=== PATIENT | male | born 1955 | race Caucasian/White ===

== ENCOUNTER 2016-02-23 09:37 | Emergency (ER) | payer BC ==
[2016-02-23 10:06] VITALS: BP 153/76; PULSE 92; TEMP 97.4; BMI 25.2
[2016-02-23] MEDS ORDERED: KETOROLAC TROMETHAMINE 60 MG/2 ML VIAL IM ONE (10:34)
[2016-02-23] MEDS ORDERED: KETOROLAC TROMETHAMINE 60 MG/2 ML VIAL ONE (10:39)
--- NOTE | 2016-02-23 10:41 | PDOC ---
History of Present Illness - General Chief Complaint: Pain Stated Complaint: RT SHOULDER PAIN/ RT ARM Time Seen by Provider: 02/23/16 10:22 History Source: Patient Exam Limitations: No Limitations - History of Present Illness Initial Comments: 02/23/16 10:36 61 yr male history of asthma, CAD, stents, DM, high cholesterol with one week right shoulder pain worse with moving neck, c/o "burning sensation " sown the outside of the arm worse at night and driving. Pt denies injury denies fever or chills no chest pain or cough. Pt saw 2 days ago was given an injection in the shoulder that helped the pain for one day now pain has returned. 02/23/16 13:17 Severity: reports: moderate Upper Extremity Pain Location: right: shoulder Method of Injury: reports: unknown Past History - Past Medical History Allergies/Adverse Reactions: Allergies Allergy/AdvReac Type Severity Reaction Status Date / Time No Known Allergies Allergy Verified 02/23/16 10:06 Home Medications: Ambulatory Orders Aspirin [ASA -] 81 mg PO DAILY 02/23/16 Lisinopril 10 mg PO DAILY 02/23/16 Metformin HCl [Glucophage] 1,000 mg PO BID 02/23/16 Metoprolol Succinate [Toprol Xl -] 25 mg PO DAILY 02/23/16 Naproxen [Naprosyn -] 500 mg PO BID PRN 02/23/16 Oxycodone HCl/Acetaminophen [Percocet 5-325 mg Tablet] 1 - 2 tab PO Q6H PRN #20 tab MDD 8 02/23/16 Pregabalin [Lyrica -] 75 mg PO BID 02/23/16 Simvastatin [Zocor] 80 mg PO HS 02/23/16 Sitagliptin Phosphate [Januvia] 100 mg PO DAILY 02/23/16 Ticagrelor [Brilinta] 90 mg PO DAILY 02/23/16 Vilazodone Hydrochloride [Viibryd] 20 mg PO DAILY 02/23/16 Cardiac Disorders: Yes Diabetes: Yes Hypercholesterolemia: Yes Psychiatric Problems: Yes (depression) - Surgical History Cardiac Surgery: Yes (CARDIAC STENT) Cholecystectomy: Yes - Family Disease History Comment:: 02/23/16 10:39 none - Immunization History Immunization Up to Date: Yes - Psycho/Social/Smoking Cessation Hx Anxiety: No Suicidal Ideation: No Smoking History: Current every day smoker Have you smoked in the past 12 months: Yes Number of Cigarettes Smoked Daily: 20 Information on smoking cessation initiated: No Hx Alcohol Use: No Substance Use Type: None Review of Systems - Review of Systems Able to Perform ROS?: Yes Is the patient limited Palestinian proficient: No Constitutional: No: Symptoms Reported HEENTM: No: Symptoms Reported Respiratory: No: Symptoms reported Cardiac (ROS): No: Symptoms Reported ABD/GI: No: Symptoms Reported : No: Symptoms Reported Musculoskeletal: Yes: Symptoms Reported, See HPI Neurological: Yes: Symptoms reported, See HPI *Physical Exam - Vital Signs Last Vital Signs Temp Pulse Resp BP Pulse Ox 97.4 F L 92 H 20 153/76 98 02/23/16 10:03 02/23/16 10:03 02/23/16 10:03 02/23/16 10:03 02/23/16 10:03 - Physical Exam General Appearance: Yes: Nourished, Appropriately Dressed HEENT: positive: EOMI, JEANETTE, Normal ENT Inspection, TMs Normal, Pharynx Normal Neck: positive: Supple, Tender midline, Other (pain with ROM of neck to the lateral right sternoclomastoid muscle/trap muscle TTP ) Respiratory/Chest: positive: Lungs Clear, Normal Breath Sounds Cardiovascular: positive: Regular Rhythm, Regular Rate Gastrointestinal/Abdominal: positive: Normal Bowel Sounds, Soft. negative: Tender Extremity: positive: Normal Capillary Refill, Normal Inspection, Normal Range of Motion, Other (pain with ROM , abduction of shoulder ) Integumentary: positive: Normal Color Neurologic: positive: Fully Oriented, Alert, Normal Mood/Affect, Normal Response , Motor Strength 5/5, Other (5/5 hand grasp right and left hands ) ED Treatment Course - RADIOLOGY Radiology Studies Ordered: Category Date Time Status SHOULDER-RIGHT [RAD] Stat Radiology 02/23/16 10:34 Ordered SPINE-CERVICAL [RAD] Stat Radiology 02/23/16 10:34 Ordered Medical Decision Making - Medical Decision Making 02/23/16 10:41 cc: right shoulder pain with numbness to the arm for 1-2 weeks, pain in the neck with movement. no chest pain or abd pain will xray to r/o fracture toradol for pain pt drove here will prescribe percocet sling to the right arm will follow at the orthopedist office, pt understands the plan of care all questions asked and answered before discharge. 02/23/16 13:17 *DC/Admit/Observation/Transfer Diagnosis at time of Disposition: Shoulder pain, acute Qualifiers: Laterality: right Qualified Code(s): M25.511 - Pain in right shoulder - Discharge Dispostion Disposition: HOME Condition at time of disposition: Good - Prescriptions Prescriptions: Oxycodone HCl/Acetaminophen [Percocet 5-325 mg Tablet] 1 - 2 tab PO Q6H PRN #20 tab MDD 8 PRN Reason: Severe Pain - Referrals Referrals: Julio Cesar Ramsey MD [Primary Care Provider] - Rudi King MD [Staff Physician] - - Patient Instructions Additional Instructions: follow with or any of the orthopedists in the office for follow up use the sling while awake remove to sleep and bathe take percocet for severe pain
== END 2016-02-23 11:32 | disposition home or self-care (01) ==
LOC: JERFT 09:37
PROC: 3E0233Z Introduction of Anti-inflammatory into Muscle, Percutaneous Approach (ICD-10-PCS; principal; 2016-02-23)
DX: M25.511 Pain in right shoulder (principal); Z79.84 Long term (current) use of oral hypoglycemic drugs; F32.9 Major depressive disorder, single episode, unspecified; I51.9 Heart disease, unspecified; Z95.5 Presence of coronary angioplasty implant and graft; E78.00 Pure hypercholesterolemia, unspecified; E11.9 Type 2 diabetes mellitus without complications; F17.210 Nicotine dependence, cigarettes, uncomplicated
CPT/HCPCS: 72050-TC; 73030-TC-RT; 99281-25

== ENCOUNTER 2016-03-01 09:26 | Day surgery (SDC) | payer BC ==
--- NOTE | 2016-02-23 08:31 | HP ---
DATE OF ADMISSION:03/01/2016 DATE OF DICTATION: 01/20/2016 REASON FOR ADMISSION: Recurrent incarcerated ventral hernia. BRIEF HISTORY: This is a 61-year-old gentleman who underwent an open ventral hernia repair approximately 10 years ago. He now presents to the office with an enlarging lump and pain in the area. He has had no bouts of nausea or vomiting. Past medical history is significant for hypotension, diabetes, cardiac disease, and bilateral lower extremity neuralgia. MEDICATIONS: Lyrica 1 tablet b.i.d., lisinopril 10 mg daily, Brilinta 90 mg b.i.d., Januvia 10 mg daily, metoprolol 0.5 mg b.i.d., atorvastatin 80 mg daily, metformin 100 mg b.i.d., and Viibryd 20 mg daily. ALLERGIES: None. SOCIAL HISTORY: Patient smokes. He does not drink. PHYSICAL EXAMINATION: Lungs: Clear. Heart: Regular rhythm. Abdomen: Soft, nontender, nondistended. He has an obvious recurrent ventral incisional hernia. It is chronically incarcerated. It is mildly tender to moderate palpation. The defects are not appreciated due to its chronically incarcerated nature. IMPRESSION/PLAN: Chronically incarcerated ventral hernia: This is a 61-year-old gentleman with recurrent hernia. He is status post mesh repair approximately 10 years ago. At this point he is symptomatic and states that the hernia has gotten larger and therefore I would recommend repairing the hernia at this time. The patient will be scheduled for an open ventral herniorrhaphy with mesh, possible component separation. The indications, alternatives, and complications discussed, questions answered. Chaparro ENRIQUEZ [id number] cc: Julio Cesar Ramsey MD
[2016-02-29 11:27] VITALS: BMI 25.8
[2016-03-01] MEDS ORDERED: TAMSULOSIN HCL 0.4 MG CAP.ER.24H (FP) ONE (10:08)
[2016-03-01] MEDS ORDERED: ceFAZolin SODIUM 1 GM VIAL ONE (10:08)
[2016-03-01] MEDS ORDERED: MIDAZOLAM HCL 2 MG/2 ML SINGLE DOSE VIAL ONE (11:14)
[2016-03-01] MEDS ORDERED: LIDOCAINE HCL/PF 2% SDV 5ML VIAL ONE ×2 (11:30→12:38)
[2016-03-01] MEDS ORDERED: ETOMIDATE 20 MG/10 ML AMPUL IVPUSH ONE (11:30)
[2016-03-01] MEDS ORDERED: PROPOFOL 20 ML ONE (11:30)
[2016-03-01] MEDS ORDERED: ROCURONIUM BROMIDE 50 MG/5 ML VIAL ONE ×2 (11:30→12:16)
[2016-03-01] MEDS ORDERED: ceFAZolin SODIUM 1 GM VIAL IVPB ONE (11:39)
[2016-03-01] MEDS ORDERED: GLYCOPYRROLATE 0.2 MG/1 ML VIAL ONE (12:37)
[2016-03-01] MEDS ORDERED: LIDOCAINE HCL 2% JELLY (5 ML/TUBE) ONE (12:38)
[2016-03-01] MEDS ORDERED: ONDANSETRON 4 MG/2 ML VIAL ONE (12:38)
[2016-03-01] MEDS ORDERED: NEOSTIGMINE METHYLSULFATE 0.5 MG/ML - 10 ML MDV ONE (12:41)
[2016-03-01] MEDS ORDERED: ONDANSETRON 4 MG/2 ML VIAL IVPUSH PRN (13:34)
[2016-03-01] MEDS ORDERED: LACTATED RINGERS SOLUTION 1,000 ML IV SCH (13:45)
[2016-03-01] MEDS ORDERED: ACETAMINOPHEN 325 MG TABLET (FP) PO PRN (13:58)
[2016-03-01] MEDS ORDERED: ONDANSETRON 4 MG/2 ML VIAL IVPB PRN (13:58)
[2016-03-01] MEDS ORDERED: morphine CARPU-JECT 10 MG/1 ML DISP.SYRIN IVPB PRN (13:58)
[2016-03-01] MEDS ORDERED: D5-1/2NS+20 MEQ KCL - 1,000 ML IV SCH (14:00)
[2016-03-01] MEDS: HYDROmorphone HCL CARPU-JECT 2 MG/1 ML DISP.SYRIN ONE ×3 (14:20→14:45)
[2016-03-01] MEDS: INSULIN SLIDING SCALE (NOVOLOG) 1 VIAL SQ SCH ×2 (17:25→21:31)
[2016-03-01] MEDS: metFORMIN HCL 500 MG TABLET (FP) PO SCH (17:27)
[2016-03-01] MEDS: PREGABALIN 75 MG CAPSULE PO SCH (21:34)
[2016-03-01] MEDS ORDERED: ATORVASTATIN CA 40 MG TABLET (FP) PO SCH (22:00)
[2016-03-01] MEDS ORDERED: PATIENT'S OWN MEDICATION (NON-FORMULARY) (Simvastatin [Zocor] 80 MG) PO SCH (22:00)
[2016-03-01] MEDS ORDERED: PATIENT'S OWN MEDICATION (NON-FORMULARY) (Metformin Hcl [Glucophage] 1,000 MG) PO SCH (22:00)
[2016-03-02] MEDS: oxyCODONE HCL 5 MG TABLET PO PRN ×2 (02:46→08:27)
[2016-03-02] MEDS: metFORMIN HCL 500 MG TABLET (FP) PO SCH (05:59)
[2016-03-02] MEDS: INSULIN SLIDING SCALE (NOVOLOG) 1 VIAL SQ SCH (05:59)
[2016-03-02] MEDS ORDERED: sitaGLIPtin PHOSPHATE 100 MG TABLET (FP) PO SCH (07:00)
[2016-03-02 08:25] VITALS: BP 128/60; PULSE 84; TEMP 97.9
[2016-03-02] MEDS ORDERED: PT OWN MED DRAWER 7, Y5N ONE (09:39)
[2016-03-02] MEDS: PREGABALIN 75 MG CAPSULE PO SCH (09:44)
[2016-03-02] MEDS ORDERED: TICAGRELOR 90 MG TABLET PO SCH (10:00)
[2016-03-02] MEDS ORDERED: PANTOPRAZOLE SODIUM 100 ML IVPB SCH (10:00)
[2016-03-02] MEDS ORDERED: VILAZODONE HYDROCHLORIDE 20 MG TABLET PO SCH (10:00)
[2016-03-02] MEDS ORDERED: LISINOPRIL 10 MG TABLET (FP) PO SCH (10:00)
[2016-03-02] MEDS ORDERED: METOPROLOL SUCCINATE 25 MG TAB.SR.24H (FP) PO SCH (10:00)
[2016-03-02] MEDS ORDERED: ENOXAPARIN NA (PORCINE) 40 MG/0.4 ML DISP.SYRIN SQ SCH (10:00)
[2016-03-02] MEDS ORDERED: ASPIRIN 81 MG CHEWABLE TABLETS PO SCH (10:00)
--- NOTE | 2016-03-02 10:44 | OP ---
DATE OF OPERATION: 03/02/2016 PREOPERATIVE DIAGNOSIS: Recurrent, complex, chronically incarcerated ventral incisional hernia. POSTOPERATIVE DIAGNOSIS: Recurrent, complex, chronically incarcerated ventral incisional hernia. PROCEDURE: Open repair of chronically incarcerated recurrent ventral incisional hernia with mesh, total abdominal reconstruction, bilateral component separation, peritoneal lavage, bladder mobilization. SURGEON: Arslan Echols MD SHOE LAY OUT PLANNER: Kofi Mayers MD ANESTHESIA: Vanita Durbin MD (General) ESTIMATED BLOOD LOSS: Minimal. SPECIMEN: None. DESCRIPTION OF PROCEDURE: This is a 61-year-old gentleman who underwent an open ventral hernia repair many, many years ago with mesh. He now has a recurrence, and the hernia is now causing him discomfort. He is here for operative repair. The patient was identified and appropriately positioned on the operating room table. After placement of general anesthesia, the abdomen was prepped and draped in the usual sterile fashion with ChloraPrep. A midline incision overlying the previous scar was made and deepened to the subcutaneous tissue. The hernia recurrence was also identified along with the hernia itself. The hernia was free from the subcutaneous tissue down to the level of the fascia. Next, the fascia at the superior edge of the hernia defect was then scored and taken towards the previous repair, and staying outside the previous repair, the fascia was then completely circumscribed in this fashion. Next, the fascia was then lifted to the anterior abdominal wall. The rectus muscle on the patient's right side was identified and the fascia just inferior to the rectus was then scored and the retrorectus space entered. This was then taken out laterally, superiorly, and inferiorly with blunt dissection. This similar technique was used on the contralateral side (the patient's left side). Next, the previous mesh along with the recurrent hernia was then overstumped beneath the posterior rectus sheath, and the rectus sheath was then reconstructed and reapproximated with running, locking 3-0 Maxon suture. The old mesh was not removed. Next, the rectorectus space on the patient's right side that was previously entered was then taken out laterally to the perforating vessels. Just medial to the perforating vessels, the fascia was then subsequently scored and the transversus released from the junction of the obliques and rectus junction. This was done the length of the defect as well as 4-5 cm above and below the actual defect. Once this was completed on the patient's right side, similar technique was used on the left side. On the left side, the transversus was from the obliques and the rectus with the cautery. This was done just medial to the perforating vessels. The myofascial separation again was done the length of the incision and approximately 4-5 cm above and below the incision and defect as well. In the midline, it was taken up a good 3 cm superiorly and a good 3-4 cm inferiorly. Next, the defect measured and a large Covidien ProGrip 15 x 15 was used for the operative repair. The posterior surface of the ProGrip was then sewn with a piece of Phasix of similar size. The 2 pieces of mesh were sewn together with interrupted 3-0 Vicryl sutures. The mesh itself was then placed into the rectorectus space that was developed and anchored way lateral beyond the obliques beyond the myofascial separation line on either side with interrupted Covidien AbsorbaTack. Deep purchase was used. In the midline the mesh was then sewn to the midline fascia with a U 0 Prolene superiorly and inferiorly as well. The mesh itself was irrigated, the operative field examined and noted to be hemostatic. The fascia overlying the mesh was then reapproximated with a 0 PDS suture. The suture bites placed were 5 cm apart and 5 cm back using a small needle. This was the 4:1 technique. The subcutaneous space was then irrigated. A 10 flat JOSE ANTONIO placed and the dermis reapproximated with interrupted inverted 3-0 Vicryl suture and the skin closed with yara. At the conclusion of this case, sponge and needle counts were correct. ATTESTATION: Brief operative note handwritten on the preprinted form. [facility] will be queried prior to giving any narcotics, and the prescriptions will be done electronically. Chaparro ENRIQUEZ [id number]
== END 2016-03-02 10:55 | disposition home or self-care (01) ==
LOC: JASUSAT 09:26 → J6S 17:00 → JASUSAT 03-02 10:55
PROVIDERS: ATTEND Surgery
PROC: 0WUF0JZ Supplement Abdominal Wall with Synthetic Substitute, Open Approach (ICD-10-PCS; principal; 2016-03-01 11:00)
PROC: 0WUF0JZ Supplement Abdominal Wall with Synthetic Substitute, Open Approach (ICD-10-PCS; 2016-03-01 11:00)
DX: K43.0 Incisional hernia with obstruction, without gangrene (principal); M62.08 Separation of muscle (nontraumatic), other site
CPT/HCPCS: 94010; 94760

== ENCOUNTER 2016-04-25 10:56 | Emergency (ER) | payer BC ==
[2016-04-25 11:06] VITALS: TEMP 97.5
--- NOTE | 2016-04-25 12:24 | PDOC ---
History of Present Illness - General History Source: Patient Exam Limitations: No Limitations <Lily Nuñez - Last Filed: 04/25/16 12:56> - History of Present Illness Initial Comments: General History Source: Patient Exam Limitations: No Limitations - History of Present Illness Initial Comments: 04/25/16 12:33 The patient is a 61 year-old man, currently everyday cigarette smoker, with a significant past medical history of hypercholesterolemia, coronary artery disease status post stent, on brilenta as blood thinner, non-insulin dependent diabetes mellitus who presents to the emergency department for further evaluation of vomiting. with vomiting some blood once today. No fever, chills. He states that approximately 6 months ago, he started to experience right shoulder pain. He went to his PMD, Dr.Martin Ramsey for further evaluation and an MRI was recommenced, which showed a "torn shoulder". Patient was placed on Advil, Aleve and Oxycodone approximately 2-3x/day for three months, which did not provide him with much relief therefore, he started taking more than this. Patient states that approximately 3 weeks ago, her started feeling nauseous and was vomiting persistently with associated loose watery stools (no blood/dark tarry appearance in stools). No abdominal pain. He was unable to tolerate any PO , thus he visited to Dr. Ramsey, who recommended a consult with Employment Security Officer, Dr. Dixon Dowd and he is scheduled for an endoscopy on May 10. This morning, the patient noted some blood in his episode of emesis , that was pink in appearance, thus he present to the Emergency Department. He denies chest pain, cough, shortness of breath, headache He denies abdominal pain, dysuria, hematuria, urinary frequency/urgency, flank pain, testicular pain or penile discharge. Allergies: No Known Drug Allergies. No Known Food Allergies. Past Surgical History: Cardiac stent placement. Hernia Repair with mesh. Social History: Current everyday cigarette smoker (Approximately 20/day). No ETOH, or recreational drug use. Primary Care Physician: Dr. Julio Cesar Ramsey [phone] Employment Security Officer: Dr. Dixon Dowd [phone] Remainder of the review of systems is negative. <Lily Nuñez - Last Filed: 04/25/16 12:45> <Fatoumata Man Last Filed: 04/27/16 07:45> - General Chief Complaint: Nausea/Vomiting Stated Complaint: NAUSEA, VOMITING BLOOD Time Seen by Provider: 04/25/16 12:12 Past History <Lily Nuñez - Last Filed: 04/25/16 12:56> - Past Medical History Anemia: No Asthma: No Cancer: No Cardiac Disorders: Yes CVA: No COPD: No CHF: No Dementia: No Diabetes: Yes GI Disorders: No Disorders: No HTN: No Hypercholesterolemia: Yes Liver Disease: No Psychiatric Problems: Yes (depression) Seizures: No Thyroid Disease: No - Surgical History Abdominal Surgery: Yes (hernia repair) Cardiac Surgery: Yes (CARDIAC STENT) Cholecystectomy: Yes - Immunization History Immunization Up to Date: Yes - Psycho/Social/Smoking Cessation Hx Anxiety: No Suicidal Ideation: No Smoking History: Current every day smoker Have you smoked in the past 12 months: Yes Number of Cigarettes Smoked Daily: 20 Information on smoking cessation initiated: No 'Breaking Loose' booklet given: 02/29/16 Hx Alcohol Use: No Drug/Substance Use Hx: No Substance Use Type: None <Fatoumata Man - Last Filed: 04/27/16 07:45> - Past Medical History Allergies/Adverse Reactions: Allergies Allergy/AdvReac Type Severity Reaction Status Date / Time No Known Allergies Allergy Verified 04/25/16 11:01 Home Medications: Ambulatory Orders Lisinopril 10 mg PO DAILY 02/23/16 Metoprolol Succinate [Toprol Xl -] 25 mg PO DAILY 02/23/16 Pregabalin [Lyrica -] 75 mg PO BID 02/23/16 Simvastatin [Zocor] 80 mg PO HS 02/23/16 Ticagrelor [Brilinta] 90 mg PO DAILY 02/23/16 Vilazodone Hydrochloride [Viibryd] 20 mg PO DAILY 02/23/16 Oxycodone HCl/Acetaminophen [Percocet 5-325 mg Tablet] 1 tab PO Q4H PRN #42 tablet MDD 6 03/01/16 Metformin HCl [Glucophage] 1,000 mg PO BID 04/25/16 Review of Systems - Review of Systems Able to Perform ROS?: Yes Comments:: 04/25/16 12:33 12 point review of systems is as per history of present illness and otherwise negative. <Lily Nuñez - Last Filed: 04/25/16 12:56> *Physical Exam - Vital Signs Last Vital Signs Temp Pulse Resp BP Pulse Ox 97.5 F L 102 H 20 113/70 100 04/25/16 11:02 04/25/16 11:02 04/25/16 11:02 04/25/16 11:02 04/25/16 11:02 <Lily Nuñez - Last Filed: 04/25/16 12:56> - Vital Signs Last Vital Signs Temp Pulse Resp BP Pulse Ox 97.5 F L 102 H 20 113/70 100 04/25/16 11:02 04/25/16 11:02 04/25/16 11:02 04/25/16 11:02 04/25/16 11:02 - Physical Exam Comments: 04/25/16 12:28 Physical exam Last Vital Signs Temp Pulse Resp BP Pulse Ox 97.5 F L 102 H 20 113/70 100 04/25/16 11:02 04/25/16 11:02 04/25/16 11:02 04/25/16 11:02 04/25/16 11:02 GENERAL: The patient is awake, alert, and fully oriented, and in no apparent distress. HEAD: Normal with no signs of trauma. EYES: sclera anicteric, conjunctiva are normal. ENT: Moist mucous membranes. NECK: Normal range of motion, supple LUNGS: Breath sounds equal, clear to auscultation bilaterally. No wheezes, and no crackles. HEART: Regular rate and rhythm, normal S1 and S2 without murmur, rub or gallop. ABDOMEN: Soft, nontender, normoactive bowel sounds. No guarding, no rebound. No masses appreciated. Prior Abdominal hernia repair with graft EXTREMITIES: Normal range of motion, no edema. No clubbing or cyanosis. No cords, erythema, or tenderness. NEUROLOGICAL: Cranial nerves II through XII grossly intact. Normal speech, normal gait. PSYCH: Normal mood, normal affect. SKIN: Warm, Dry, normal turgor, no rashes or lesions noted. <Fatoumata Man - Last Filed: 04/27/16 07:45> ED Treatment Course - LABORATORY CBC & Chemistry Diagram: 04/25/16 12:07 04/25/16 12:07 - RADIOLOGY Radiograph Interpretation: 04/25/16 12:55 EXAM: RAD/CHEST X-RAY PORTABLE IMPRESSION: A single frontal film of the chest reveals a normal sized heart with normal vascularity. The lung triplett are clear without evidence of mass or infiltrate. The mediastinal, osseous, and soft tissue structures as visualized are normal. <JoaquinLily - Last Filed: 04/25/16 12:56> - LABORATORY CBC & Chemistry Diagram: 04/25/16 12:07 04/25/16 12:07 - RADIOLOGY Radiology Studies Ordered: Category Date Time Status CHEST X-RAY PORTABLE* [RAD] Stat Radiology 04/25/16 12:06 Ordered <Fatoumata Man - Last Filed: 04/27/16 07:45> Medical Decision Making - Medical Decision Making 04/25/16 12:30 61-year-old male with a history of CAD with stents, who was on brilenta as a blood thinner He has had chronic shoulder issues, and has been taking multiple Advil and Aleve 's 3 weeks ago he started developing some nausea and vomiting, abdominal pain, and some diarrhea, but there was no coffee grounds or blood in the vomitus or stool Today, he did vomit some bright red blood, but vomitus was mostly pink in color He has no prior history of any ulcers He saw Dr. Dowd last week, and was scheduled for an upper Endo 4/, and put on Prilosec EKG Sinus rhythm 85, normal axis Normal AV and IV conduction time Normal EKG 04/25/16 13:[address] Redd in the ED - NPO for endo tomorrow - can have ice chips, will place in obs Normal H&H, hemodynamically stable Laboratory Results - last 24 hr 04/25/16 04/25/16 04/25/16 12:07 12:07 12:07 WBC 11.9 H RBC 4.76 Hgb 15.1 Hct 45.0 MCV 94.6 MCHC 33.6 RDW 15.2 Plt Count 226 MPV 8.1 Neutrophils % 65.7 Lymphocytes % 25.6 Monocytes % 6.8 Eosinophils % 1.2 Basophils % 0.7 INR 1.04 Sodium 136 Potassium 4.1 Chloride 101 Carbon Dioxide 25 Anion Gap 10 BUN 19 H D Creatinine 0.6 L Creat Clearance w eGFR > 60 Random Glucose 170 H D Calcium 8.9 Total Bilirubin 0.5 D AST 16 D ALT 38 D Alkaline Phosphatase 96 Creatine Kinase 67 Troponin I < 0.02 Total Protein 6.9 Albumin 3.8 Blood Type Antibody Screen 04/25/16 12:07 WBC RBC Hgb Hct MCV MCHC RDW Plt Count MPV Neutrophils % Lymphocytes % Monocytes % Eosinophils % Basophils % INR Sodium Potassium Chloride Carbon Dioxide Anion Gap BUN Creatinine Creat Clearance w eGFR Random Glucose Calcium Total Bilirubin AST ALT Alkaline Phosphatase Creatine Kinase Troponin I Total Protein Albumin Blood Type A POSITIVE Antibody Screen Negative 04/25/16 14:10 Patient seen in the ER by Julio Cesar Ramsey in ER Dr. Ramsey would like to send the patient home, since he is hemodynamically stable and his H&H is normal He has scheduled the upper endoscopy for 7:[address] Tramaine Ramsey Wants to see the patient in the office this afternoon spoke with Dr Ramsey - 04/25/16 15:01 Patient's son is coming to pick him up and take him directly to Dr. Ramsey's office for re-eval Patient has endoscopy scheduled for 7:[address] Redd Patient will return immediately if he worsens in any way Vital Signs - 24 hr 04/25/16 04/25/16 11:02 14:57 Temperature 97.5 F L Pulse Rate 102 H Pulse Rate [ 79 Apical] Respiratory 20 19 Rate Blood Pressure 113/70 Blood Pressure 127/66 [Left Arm] O2 Sat by Pulse 100 97 Oximetry (%) alert and ambulatory around the ED w/o problems <Fatoumata Man - Last Filed: 04/27/16 07:45> *DC/Admit/Observation/Transfer - Attestations Scribe Attestion: 04/25/16 12:34 Documentation prepared by Lily Nuñez, acting as medical office coordinator for Fatoumata Man MD. <Lily Nuñez - Last Filed: 04/25/16 12:56> <Fatoumata Man - Last Filed: 04/27/16 07:45> Diagnosis at time of Disposition: Hematemesis - Discharge Dispostion Disposition: HOME Condition at time of disposition: Stable - Referrals Referrals: Julio Cesar Ramsey MD [Primary Care Provider] - Juan C Redd MD [Staff Physician] - - Patient Instructions Additional Instructions: stop the brilenta You are to go directly from here to Dr. Rawls's office now - he is expecting you You have an appointment for an upper endoscopy with Dr. Redd at 7:30 AM tomorrow Do not eat or drink anything after 10 PM You got a dose of Protonix here intravenously in the ER He will not need another dose of Protonix until tomorrow after the endoscopy Dr. Rawls Will give you this prescription Return immediately if you worsen in any way, or if you vomit any bloody material again
[2016-04-25 12:28] LABS: BASOPHIL 0.7 % (0-2.0); EOSINOPHIL 1.2 % (0-4.5); MCH 31.7 pg (25.7-33.7); MCHC 33.6 g/dl (32.0-35.9); MEAN CELL VOLUME 94.6 fl (80-96); MEAN PLT VOLUME 8.1 fl (7.5-11.1); NEUTROPHILS 65.7 % (42.8-82.8); PLATELET COUNT 226 K/MM3 (134-434); RDW 15.2 % (11.9-15.9); WHITE BLOOD COUNT 11.9 K/mm3 (4.0-10.0)
[2016-04-25] MEDS ORDERED: PANTOPRAZOLE SODIUM 40 MG in SODIUM CHLORIDE 100 ML IVPB ONE (12:40)
[2016-04-25] MEDS ORDERED: SODIUM CHLORIDE 1,000 ML IV STA (12:40)
[2016-04-25] MEDS ORDERED: PANTOPRAZOLE SODIUM 40 MG VIAL ONE (12:49)
[2016-04-25 12:59] LABS: INR 1.04 (0.82-1.09); PROTHROMBIN TIME (PATIENT) 11.4 SEC (9.98-11.88)
[2016-04-25 13:02] LABS: ALBUMIN 3.8 g/dl (3.4-5.0); ANION GAP 10 (8-16); BILIRUBIN,TOTAL 0.5 mg/dL (0.2-1.0); CALCIUM 8.9 mg/dL (8.5-10.1); CO2 25 mmol/L (21-32); CREATININE 0.6 mg/dL (0.7-1.3); GLUCOSE,RANDOM 170 mg/dL (74-106); SGOT/AST 16 U/L (15-37); SGPT/ALT 38 U/L (12-78); TOT PROT 6.9 g/dl (6.4-8.2)
[2016-04-25 13:04] LABS: ALK PHOS 96 U/L (45-117); TROPONIN I < 0.02 ng/ml (0.00-0.05)
--- NOTE | 2016-04-25 14:48 | EKG ---
Test Reason : Blood Pressure : / mmHG Vent. Rate : 085 BPM Atrial Rate : 085 BPM P-R Int : 144 ms QRS Dur : 082 ms QT Int : 360 ms P-R-T Axes : 055 079 045 degrees QTc Int : 428 ms NORMAL SINUS RHYTHM NORMAL ECG WHEN COMPARED WITH ECG OF 06-JUN-2014 15:25, NO SIGNIFICANT CHANGE WAS FOUND Confirmed by ROBYN ROSARIO MD ([id number]) on 04/25/2016 2:47:55 PM Referred By: Confirmed By:ROBYN ROSARIO MD
[2016-04-25 14:58] VITALS: BP 127/66; PULSE 79
== END 2016-04-25 15:43 | disposition home or self-care (01) ==
LOC: JER 10:56
PROC: 3E033GC Introduction of Other Therapeutic Substance into Peripheral Vein, Percutaneous Approach (ICD-10-PCS; principal; 2016-04-25)
DX: K92.0 Hematemesis (principal); I25.10 Atherosclerotic heart disease of native coronary artery without angina pectoris; I10 Essential (primary) hypertension; F17.210 Nicotine dependence, cigarettes, uncomplicated; Z95.5 Presence of coronary angioplasty implant and graft; E11.9 Type 2 diabetes mellitus without complications; E78.00 Pure hypercholesterolemia, unspecified; Z79.84 Long term (current) use of oral hypoglycemic drugs
CPT/HCPCS: 36415; 71010-TC; 80053; 82550; 84484; 85025; 85610; 86850; 86900; 86901; 93005; 93010; 99283-25

== ENCOUNTER 2016-05-09 18:32 | Inpatient (IN) | payer BC ==
--- NOTE | 2016-05-09 19:44 | PDOC ---
History of Present Illness - General History Source: Patient <YoandydariusEbenezer - Last Filed: 05/10/16 00:13> - General History Source: Patient Exam Limitations: No Limitations - History of Present Illness Initial Comments: 05/09/16 20:00 The patient is a 61 year old male with significant past medical history of hyperlipidemia, CAD s/p stents, and non-insulin dependent diabetes mellitus who presents to the ED with several weeks of persistent nausea and nonbloody vomiting. Patient had a endoscopy with Dr. Redd about 10 days ago, which he states showed no acute pathology. He continues to have nausea and vomiting. Denies abdominal pain and states occasionally having intermittent episodes of diarrhea in the past, but has not had any recent episodes. States he was placed on metformin to control his blood sugar, which has been in the 150s. The patient denies fever, chills, cough, SOB, chest pain, and palpitations. The patient denies dysuria, hematuria, urgency, and frequency. Allergies: NKDA Social History: Current everyday cigarette smoker (ppd). No etoh or recreational drug use. Past Surgical History: s/p cardiac stent placement, inguinal hernia repair with mesh (about 1 month ago), cholecystectomy PCP: Dr. Julio Cesar Ramsey GI: Dr. Dixon Dowd <Kristine Sewell - Last Filed: 05/10/16 03:14> - General Chief Complaint: Nausea/Vomiting Stated Complaint: VOMITING Time Seen by Provider: 05/09/16 19:44 Past History - Past Medical History Anemia: No Asthma: No Cancer: No Cardiac Disorders: Yes CVA: No COPD: No CHF: No Dementia: No Diabetes: Yes GI Disorders: No Disorders: No HTN: No Hypercholesterolemia: Yes Liver Disease: No Psychiatric Problems: Yes (depression) Seizures: No Thyroid Disease: No - Surgical History Abdominal Surgery: Yes (hernia repair) Cardiac Surgery: Yes (CARDIAC STENT) Cholecystectomy: Yes - Immunization History Immunization Up to Date: Yes - Psycho/Social/Smoking Cessation Hx Anxiety: No Suicidal Ideation: No Smoking History: Current every day smoker Have you smoked in the past 12 months: Yes Number of Cigarettes Smoked Daily: 20 Information on smoking cessation initiated: No 'Breaking Loose' booklet given: 02/29/16 Hx Alcohol Use: No Drug/Substance Use Hx: No Substance Use Type: None <Ebenezer August - Last Filed: 05/10/16 00:13> <Kristine Sewell - Last Filed: 05/10/16 03:14> - Past Medical History Allergies/Adverse Reactions: Allergies Allergy/AdvReac Type Severity Reaction Status Date / Time No Known Allergies Allergy Verified 05/09/16 18:34 Home Medications: Ambulatory Orders Lisinopril 10 mg PO DAILY 02/23/16 Metoprolol Succinate [Toprol Xl -] 25 mg PO DAILY 02/23/16 Simvastatin [Zocor] 80 mg PO HS 02/23/16 Ticagrelor [Brilinta] 90 mg PO DAILY 02/23/16 Vilazodone Hydrochloride [Viibryd] 20 mg PO DAILY 02/23/16 Metformin HCl [Glucophage] 1,000 mg PO BID 04/25/16 Pantoprazole Sodium 40 mg PO DAILY 05/10/16 Review of Systems - Review of Systems Able to Perform ROS?: Yes Comments:: 05/09/16 20:00 CONSTITUTIONAL: Absent: fever, chills, diaphoresis, generalized weakness, malaise, loss of appetite HEENT: Absent: rhinorrhea, nasal congestion, throat pain, throat swelling, difficulty swallowing, mouth swelling, ear pain, eye pain, visual Changes CARDIOVASCULAR: Absent: chest pain, syncope, palpitations, irregular heart rate, lightheadedness , peripheral edema RESPIRATORY: Absent: cough, shortness of breath, dyspnea with exertion, orthopnea, wheezing, stridor, hemoptysis GASTROINTESTINAL: +nausea, vomiting, diarrhea Absent: abdominal pain, abdominal distension, constipation, melena, hematochezia GENITOURINARY: Absent: dysuria, frequency, urgency, hesitancy, hematuria, flank pain, genital pain MUSCULOSKELETAL: Absent: myalgia, arthralgia, joint swelling SKIN: Absent: rash, itching, pallor NEUROLOGIC: Absent: headache, focal weakness or paresthesias, dizziness, unsteady gait, seizure, mental status changes, bladder or bowel incontinence <Kristine Sewell - Last Filed: 05/10/16 03:14> *Physical Exam - Vital Signs Last Vital Signs Temp Pulse Resp BP Pulse Ox 98.4 F 101 H 18 93/52 98 05/09/16 18:34 05/09/16 18:34 05/09/16 18:34 05/09/16 18:34 05/09/16 18:34 <Ebenezer August - Last Filed: 05/10/16 00:13> - Vital Signs Last Vital Signs Temp Pulse Resp BP Pulse Ox 98.4 F 101 H 18 93/52 98 05/09/16 18:34 05/09/16 18:34 05/09/16 18:34 05/09/16 18:34 05/09/16 18:34 - Physical Exam Comments: 05/09/16 20:01 GENERAL: Well developed, well nourished. Awake and alert. No acute distress. HEENT: Normocephalic, atraumatic. PERRLA, EOMI. No conjunctival pallor. Sclera are non- icteric. Slightly dry mucous membranes. Oropharynx is clear. NECK: Supple. Full ROM. No JVD. Carotid pulses 2+ and symmetric, without bruits. No thyromegaly. No lymphadenopathy. CARDIOVASCULAR: Regular rate and rhythm. No murmurs, rubs, or gallops. Distal pulses are 2+ and symmetric. PULMONARY: No evidence of respiratory distress. Lungs clear to auscultation bilaterally. No wheezing, rales or rhonchi. ABDOMINAL: Soft. Non-tender. Non-distended. No rebound or guarding. No organomegaly. Normoactive bowel sounds. MUSCULOSKELETAL Normal range of motion at all joints. No bony deformities or tenderness. No CVA tenderness. EXTREMITIES: No cyanosis. No clubbing. No edema. No calf tenderness. SKIN: Warm and dry. Normal capillary refill. No rashes. No jaundice. NEUROLOGICAL: Alert, awake, appropriate. Cranial nerves 2-12 intact. Moving all extremities. No gross focal neurological deficits. <Kristine Sewell - Last Filed: 05/10/16 03:14> Heart Score/ECG Review - ECG Impressions Comment:: 05/10/16 03:13 NSR @82bpm Rightward axis Borderline ECG <Kristine Sewell - Last Filed: 05/10/16 03:14> ED Treatment Course - LABORATORY CBC & Chemistry Diagram: 05/09/16 20:40 05/09/16 20:40 <Ebenezer August - Last Filed: 05/10/16 00:13> - LABORATORY CBC & Chemistry Diagram: 05/09/16 20:40 05/09/16 20:40 - RADIOLOGY Radiograph Interpretation: 05/09/16 23:56 EXAM: CT abdomen and pelvis with contrast Reviewed by Imaging insect control aide: FINDINGS: Lung bases are clear. The visualized cardiac chambers are normal size and configuration. Status post cholecystectomy without biliary duct dilation. Scattered pancreatic calcifications are consistent with chronic pancreatitis. No acute inflammation. Normal liver, spleen, adrenal glands and kidneys. The stomach and small bowel are normal. No bowel obstruction. Mild wall thickening of the rectosigmoid colon could represent a mild colitis. The There is no aortic aneurysm. There is no significant retroperitoneal lymphadenopathy. The appendix is normal. The urinary bladder and prostate gland are normal. No pelvic free fluid is identified. There is no significant pelvic lymphadenopathy. IMPRESSION: Questionable mild rectosigmoid colitis without secondary complications Chronic pancreatitis. <Kristine Sewell - Last Filed: 05/10/16 03:14> Medical Decision Making - Medical Decision Making 05/10/16 00:13 Dr. August: The scribe's documentation has been prepared under my direction and personally reviewed by me in its entirery. I confirm that the note above accurately reflects all work, treatment, procedures, and medical decision making performed by me. Pt ct scan abd/pelvis shows colitis, and signs of chronic pancreatitis. spoke to pt pcp Dr. Julio Cesar Griffin. Will admit to [facility] <Ebenezer August - Last Filed: 05/10/16 00:13> - Medical Decision Making 05/10/16 00:[address] Julio Cesar Ramsey (via answering service) at 24:06 and patient's case was discussed. <Kristine Sewell - Last Filed: 05/10/16 03:14> *DC/Admit/Observation/Transfer - Discharge Dispostion Admit: Yes <Ebenezer August - Last Filed: 05/10/16 00:13> - Attestations Scribe Attestion: 05/09/16 20:01 Documentation prepared by Kristine Sewell, acting as medical billing supervisor for Ebenezer August MD <Kristine Sewell - Last Filed: 05/10/16 03:14> Diagnosis at time of Disposition: Colitis Pancreatitis Qualifiers: Pancreatitis type: other Acute pancreatitis complication: unspecified - Referrals
[2016-05-09] MEDS ORDERED: SODIUM CHLORIDE 1,000 ML IV STA (19:48)
[2016-05-09] MEDS ORDERED: ONDANSETRON 4 MG/2 ML VIAL IVPUSH STA (19:48)
[2016-05-09] MEDS ORDERED: ONDANSETRON 4 MG/2 ML VIAL ONE (20:47)
[2016-05-09 20:50] LABS: BASOPHIL 0.5 % (0-2.0); EOSINOPHIL 0.2 % (0-4.5); MCH 31.9 pg (25.7-33.7); MEAN CELL VOLUME 93.7 fl (80-96); MEAN PLT VOLUME 7.6 fl (7.5-11.1); NEUTROPHILS 77.3 % (42.8-82.8); PLATELET COUNT 251 K/MM3 (134-434); RDW 15.1 % (11.9-15.9); WHITE BLOOD COUNT 15.6 K/mm3 (4.0-10.0)
[2016-05-09 21:06] LABS: INR 1.16 (0.82-1.09); PROTHROMBIN TIME (PATIENT) 12.8 SEC (9.98-11.88)
[2016-05-09 21:16] LABS: ALBUMIN 4.2 g/dl (3.4-5.0); AMYLASE 26 U/L (25-115); ANION GAP 13 (8-16); BILIRUBIN,TOTAL 0.6 mg/dL (0.2-1.0); CALCIUM 8.9 mg/dL (8.5-10.1); CO2 27 mmol/L (21-32); CREATININE 1.2 mg/dL (0.7-1.3); GLUCOSE,RANDOM 169 mg/dL (74-106); MAGNESIUM 1.9 mg/dL (1.8-2.4); SGOT/AST 17 U/L (15-37); SGPT/ALT 57 U/L (12-78); TOT PROT 7.4 g/dl (6.4-8.2)
[2016-05-09 21:17] LABS: ALK PHOS 106 U/L (45-117); TROPONIN I < 0.02 ng/ml (0.00-0.05)
[2016-05-09 23:32] LABS: URINE APPEARANCE CLEAR; URINE BILIRUBIN NEGATIVE (NEGATIVE); URINE BLOOD NEGATIVE (NEGATIVE); URINE COLOR AMBER; URINE GLUCOSE (UA) 1+ (NEGATIVE); URINE KETONE TRACE (NEGATIVE); URINE LEUK ESTERASE NEGATIVE (NEGATIVE); URINE NITRITE NEGATIVE (NEGATIVE); URINE UROBILINOGEN NEGATIVE E.U./dl (0.2-1.0)
[2016-05-09 23:36] LABS: ACETONE SERUM NEGATIVE (NEGATIVE)
[2016-05-09 23:37] LABS: URINE PROTEIN 2+ (NEGATIVE)
[2016-05-09 23:40] LABS: URINE BACTERIA RARE /hpf (NONE SEEN); URINE HYALINE CAST 101 /lpf; URINE MUCUS MANY; URINE RBC 19 /hpf (0-3); URINE WBC 6 /hpf (3-5)
[2016-05-10] MEDS ORDERED: LEVOFLOXACIN 500 MG IVPB 100 ML IVPB ONE ×2 (00:04→00:39)
[2016-05-10] MEDS ORDERED: METRONIDAZOLE 500 MG PREMIXED 100 ML IVPB ONE ×2 (00:04→00:39)
[2016-05-10] MEDS ORDERED: ACETAMINOPHEN 325 MG TABLET (FP) PO PRN ×2 (05:06→05:07)
[2016-05-10] MEDS: SODIUM CHLORIDE 0.45% 1,000 ML IV SCH (06:23)
[2016-05-10] MEDS: metFORMIN HCL 500 MG TABLET (FP) PO SCH ×2 (06:24→18:06)
[2016-05-10 07:25] VITALS: BMI 21.4
[2016-05-10] MEDS ORDERED: ONDANSETRON 4 MG TABLET PO PRN (09:03)
[2016-05-10] MEDS ORDERED: PT OWN MED DRAWER 7, Y5N ONE ×3 (11:16→23:35)
--- NOTE | 2016-05-10 11:19 | EKG ---
Test Reason : Blood Pressure : / mmHG Vent. Rate : 082 BPM Atrial Rate : 082 BPM P-R Int : 144 ms QRS Dur : 092 ms QT Int : 390 ms P-R-T Axes : 086 105 058 degrees QTc Int : 455 ms NORMAL SINUS RHYTHM RIGHTWARD AXIS BORDERLINE ECG WHEN COMPARED WITH ECG OF 25-APR-2016 12:16, NO SIGNIFICANT CHANGE WAS FOUND Confirmed by GISSELLE LUO MD ([id number]) on 05/10/2016 11:19:35 AM Referred By: Confirmed By:GISSELLE LUO MD
[2016-05-10] MEDS: METRONIDAZOLE 500 MG PREMIXED 100 ML IVPB SCH ×2 (11:24→21:56)
[2016-05-10] MEDS: TICAGRELOR 90 MG TABLET PO SCH ×2 (11:46→21:57)
[2016-05-10] MEDS: PANTOPRAZOLE SODIUM 40 MG/100 ML PRE-DOCKED IVPB SCH (12:33)
--- NOTE | 2016-05-10 13:19 | HP ---
Admitting History and Physical - Admission Chief Complaint: nausea only 1 mth loss wt History of Present Illness: subclinical eval nl heydi my office History Source: Patient, Family Member Limitations to Obtaining History: No Limitations - Past Medical History Gastrointestinal: Yes: Pancreatitis, Other (sig colitis) - Past Surgical History Past Surgical History: Yes: Stent - Smoking History Smoking history: Current every day smoker Have you smoked in the past 12 months: Yes Aproximately how many cigarettes per day: 20 - Alcohol/Substance Use Hx Alcohol Use: No - Social History Usual Living Arrangement: Yes: With Spouse ADL: Independent History of Recent Travel: No Home Medications - Allergies Allergies/Adverse Reactions: Allergies Allergy/AdvReac Type Severity Reaction Status Date / Time No Known Allergies Allergy Verified 05/09/16 18:34 - Home Medications Home Medications: Ambulatory Orders Lisinopril 10 mg PO DAILY 02/23/16 Metoprolol Succinate [Toprol Xl -] 25 mg PO DAILY 02/23/16 Simvastatin [Zocor] 80 mg PO HS 02/23/16 Ticagrelor [Brilinta] 90 mg PO DAILY 02/23/16 Vilazodone Hydrochloride [Viibryd] 20 mg PO DAILY 02/23/16 Metformin HCl [Glucophage] 1,000 mg PO BID 04/25/16 Pantoprazole Sodium 40 mg PO DAILY 05/10/16 Family Disease History - Family Disease History Family History: Unremarkable Review of Systems - Review of Systems Constitutional: reports: Loss of Appetite Physical Examination Vital Signs: Vital Signs Temperature 97.7 F 05/10/16 10:00 Pulse Rate 85 05/10/16 10:00 Respiratory Rate 18 05/10/16 10:00 Blood Pressure 113/66 05/10/16 10:00 O2 Sat by Pulse Oximetry (%) 95 05/10/16 04:20 Assessment/Plan ca 19 9 sed rate stopped some meds nasusea ? sed meds cont wts
--- NOTE | 2016-05-10 13:28 | EKG ---
Test Reason : Blood Pressure : / mmHG Vent. Rate : 087 BPM Atrial Rate : 087 BPM P-R Int : 146 ms QRS Dur : 088 ms QT Int : 376 ms P-R-T Axes : 043 079 049 degrees QTc Int : 452 ms SINUS RHYTHM WITH OCCASIONAL and consecutive PREMATURE VENTRICULAR COMPLEXES LOW VOLTAGE QRS ABNORMAL ECG WHEN COMPARED WITH ECG OF 10-MAY-2016 03:11, PREMATURE VENTRICULAR COMPLEXES ARE NOW PRESENT Confirmed by VALERIO GALLEGOS, GISSELLE ([id number]) on 05/10/2016 1:28:21 PM Referred By: Mykel SUAREZ Confirmed By:GISSELLE LUO MD
--- NOTE | 2016-05-10 22:07 | CON.GI ---
Consult Consult Specialty:: GI Referred by:: Mykel Ramsey Reason for Consultation:: abdominal pain and diarrhea - History of Present Illness History of Present Illness: 61 M seen by myself a few weeks ago for chronic abdominal pain and diarrhea. He has a h/o DM and HLD as well as CAD s/p stent placement. EGD done last week by myself, was essentially unremarkable. He now comes to the ER with the same complaint of abdominal pain, and diarrhea. He had a CT that suggests chronic pancreatitis. He denies heavy drinking, even as a young man. - History Source History Provided By: Patient, Medical Record Limitations to Obtaining History: No Limitations - Past Medical History Cardio/Vascular: Yes: CAD (stent placement) Gastrointestinal: Yes: Pancreatitis, Other (sig colitis) - Past Surgical History Past Surgical History: Yes: Stent - Alcohol/Substance Use Hx Alcohol Use: No History of Substance Use: reports: None - Smoking History Smoking history: Current every day smoker Have you smoked in the past 12 months: Yes Aproximately how many cigarettes per day: 20 - Social History ADL: Independent History of Recent Travel: No Home Medications - Allergies Allergies/Adverse Reactions: Allergies Allergy/AdvReac Type Severity Reaction Status Date / Time No Known Allergies Allergy Verified 05/09/16 18:34 - Home Medications Home Medications: Ambulatory Orders Lisinopril 10 mg PO DAILY 02/23/16 Metoprolol Succinate [Toprol Xl -] 25 mg PO DAILY 02/23/16 Simvastatin [Zocor] 80 mg PO HS 02/23/16 Ticagrelor [Brilinta] 90 mg PO DAILY 02/23/16 Vilazodone Hydrochloride [Viibryd] 20 mg PO DAILY 02/23/16 Metformin HCl [Glucophage] 1,000 mg PO BID 04/25/16 Pantoprazole Sodium 40 mg PO DAILY 05/10/16 Physical Exam-GI Vital Signs: Vital Signs Temperature 98.1 F 05/10/16 20:30 Pulse Rate 78 05/10/16 20:30 Respiratory Rate 18 05/10/16 20:30 Blood Pressure 112/73 05/10/16 20:30 O2 Sat by Pulse Oximetry (%) 96 05/10/16 18:00 Constitutional: Yes: Anxious, Moderate Distress Neck: Yes: Supple Cardiovascular: Yes: Regular Rate and Rhythm Respiratory: Yes: CTA Bilaterally Gastrointestinal Inspection: Yes: WNL ...Palpate: Yes: Soft. No: Tenderness Labs: INR, PTT INR 1.16 (0.82-1.09) H 05/09/16 20:40 CBC, BMP 05/09/16 20:40 05/09/16 20:40 Hepatic Panel Total Bilirubin 0.6 mg/dL (0.2-1.0) 05/09/16 20:40 AST 17 U/L (15-37) 05/09/16 20:40 ALT 57 U/L (12-78) D 05/09/16 20:40 Alkaline Phosphatase 106 U/L (45-117) 05/09/16 20:40 Albumin 4.2 g/dl (3.4-5.0) 05/09/16 20:40 Abnormal Lab Results 05/09/16 23:05 Urine Protein 2+ H Urine Glucose (UA) 1+ H Urine Ketones Trace H Imaging - Results Cat Scan: Report Reviewed (chronic pancreatitis with calcifications) Assessment/Plan 61 M with h/o0 type II DM and HLD now with abdominal pain and diarrhea Chronic pancreatitis likely related to DM/? triglyceride induced pancreatitis-- > chronic pancreatitis Diarrhea secondary to pancreatic exocrine insufficiency Rec: Check trig level Start tricor or equivalent if elevated Start Creon 36K 1 cap with each meal Advance diet
[2016-05-11] MEDS: metFORMIN HCL 500 MG TABLET (FP) PO SCH ×2 (06:04→17:23)
[2016-05-11] MEDS: SODIUM CHLORIDE 0.45% 1,000 ML IV SCH (06:04)
[2016-05-11 07:59] LABS: BASOPHIL 0.5 % (0-2.0); EOSINOPHIL 1.4 % (0-4.5); MCH 32.9 pg (25.7-33.7); MCHC 34.7 g/dl (32.0-35.9); MEAN CELL VOLUME 94.9 fl (80-96); MEAN PLT VOLUME 7.8 fl (7.5-11.1); NEUTROPHILS 50.8 % (42.8-82.8); PLATELET COUNT 193 K/MM3 (134-434)
[2016-05-11 09:00] LABS: ALBUMIN 3.4 g/dl (3.4-5.0); ALK PHOS 89 U/L (45-117); ANION GAP 14 (8-16); BILIRUBIN,TOTAL 0.4 mg/dL (0.2-1.0); CALCIUM 8.4 mg/dL (8.5-10.1); CO2 21 mmol/L (21-32); CREATININE 0.7 mg/dL (0.7-1.3); GLUCOSE,RANDOM 164 mg/dL (74-106); SGOT/AST 11 U/L (15-37); SGPT/ALT 37 U/L (12-78); TOT PROT 6.3 g/dl (6.4-8.2)
[2016-05-11] MEDS ORDERED: PT OWN MED DRAWER 7, Y5N ONE ×2 (09:49→17:20)
[2016-05-11] MEDS: METRONIDAZOLE 500 MG PREMIXED 100 ML IVPB SCH ×2 (09:57→22:25)
[2016-05-11] MEDS: PANTOPRAZOLE SODIUM 40 MG/100 ML PRE-DOCKED IVPB SCH (09:57)
[2016-05-11] MEDS: TICAGRELOR 90 MG TABLET PO SCH ×2 (09:57→22:25)
[2016-05-11] MEDS: LIPASE/PROTEASE/AMYLASE 36,000 UNIT CAPSULE PO SCH ×3 (09:57→17:24)
[2016-05-11] MEDS ORDERED: POTASSIUM CHLORIDE TABS 20 MEQ TABLET.ER (FP) PO ONE (11:15)
--- NOTE | 2016-05-11 14:29 | PN ---
Progress Note, Physician - Current Medication List Current Medications: Active Medications Acetaminophen (Tylenol -) 650 mg PO Q4H PRN PRN Reason: FEVER OR PAIN Acetaminophen (Tylenol -) 650 mg PO Q6H PRN PRN Reason: FEVER OR PAIN Metronidazole (Flagyl 500mg Premixed Ivpb -) 100 mls @ 100 mls/hr IVPB BID [facility] Stop: 05/14/16 22:59 Last Admin: 05/11/16 09:57 Dose: 100 mls/hr Sodium Chloride (1/2 Normal Saline) 1,000 mls @ 75 mls/hr IV ASDIR [facility] Last Admin: 05/11/16 06:04 Dose: 75 mls/hr Metformin HCl (Glucophage -) 1,000 mg PO BIDAC [facility] Last Admin: 05/11/16 06:04 Dose: 1,000 mg Ondansetron HCl (Zofran -) 4 mg PO Q8H PRN PRN Reason: NAUSEA Stop: 05/15/16 09:02 Last Admin: 05/10/16 11:46 Dose: 4 mg Pancrelipase (Creon Dr 36,000 Units Capsule) 1 cap PO TIDCM [facility] Last Admin: 05/11/16 12:32 Dose: Not Given Pantoprazole Sodium (Protonix -) 40 mg PO DAILY [facility] Ticagrelor (Brilinta -) 90 mg PO BID [facility] Last Admin: 05/11/16 09:57 Dose: 90 mg - Objective Vital Signs: Vital Signs Temperature 97.9 F 05/11/16 10:03 Pulse Rate 76 05/11/16 10:03 Respiratory Rate 20 05/11/16 10:03 Blood Pressure 130/73 05/11/16 10:03 O2 Sat by Pulse Oximetry (%) 97 05/11/16 10:03 Labs: CBC, BMP 05/11/16 06:30 05/11/16 06:30 INR, PTT INR 1.16 (0.82-1.09) H 05/09/16 20:40 Assessment/Plan pt now has apetite back vss c/o neck pain h/o gouiter refused endo f/u in my office xray neck today showed djd tsh t4 pnd /? d/c in am spoke to pt upset stating we are not taking care of properly? she closed phone on me when attemted to see why she [place] cont all tx as is
[2016-05-11] MEDS ORDERED: LIPASE/PROTEASE/AMYLASE 36,000 UNIT CAPSULE PO SCH (17:30)
--- NOTE | 2016-05-11 20:54 | PN ---
Progress Note (short form) - Note Progress Note: Patient seen Diarrhea has resolved. Abdominal pain resolved. Still c/o nausea, likely related to gastroparesis Last Vital Signs Temp Pulse Resp BP Pulse Ox 98.6 F 86 20 129/80 97 05/11/16 14:42 05/11/16 14:42 05/11/16 14:42 05/11/16 14:42 05/11/16 10:03 Active Medications Generic Name Dose Route Start Last Admin Trade Name Freq PRN Reason Stop Dose Admin Acetaminophen 650 mg 05/10/16 05:06 Tylenol - PO Q4H PRN FEVER OR PAIN Acetaminophen 650 mg 05/10/16 05:07 Tylenol - PO Q6H PRN FEVER OR PAIN Metronidazole 100 mls @ 100 mls/hr 05/10/16 10:00 05/11/16 09:57 Flagyl 500mg Premixed Ivpb - IVPB 05/14/16 22:59 100 mls/hr BID [facility] Administration Metformin HCl 1,000 mg 05/10/16 07:00 05/11/16 17:23 Glucophage - PO 1,000 mg BIDAC [facility] Administration Nicotine 21 mg 05/12/16 10:00 Nicoderm Patch - TD DAILY [facility] Ondansetron HCl 4 mg 05/10/16 09:03 05/10/16 11:46 Zofran - PO 05/15/16 09:02 4 mg Q8H PRN Administration NAUSEA Pancrelipase 1 cap 05/11/16 08:00 05/11/16 17:[address] 36,000 Units Capsule PO 1 cap TIDCM [facility] Administration Pantoprazole Sodium 40 mg 05/12/16 10:00 Protonix - PO DAILY [facility] Ticagrelor 90 mg 05/10/16 10:00 05/11/16 09:57 Brilinta - PO 90 mg BID [facility] Administration EXAM: Lungs clear Cor Reg Abd soft NT CBC, BMP 05/11/16 06:30 05/11/16 06:30 Hepatic Panel Total Bilirubin 0.4 mg/dL (0.2-1.0) D 05/11/16 06:30 AST 11 U/L (15-37) L D 05/11/16 06:30 ALT 37 U/L (12-78) D 05/11/16 06:30 Alkaline Phosphatase 89 U/L (45-117) 05/11/16 06:30 Albumin 3.4 g/dl (3.4-5.0) 05/11/16 06:30 Will A/P 1-chronic pancreatitis. Creon to address pancreatic exocrine insufficiency- doing well 2-diabetic gastroparesis-recommend Emycin 250 po BID Will see as opt FF
[2016-05-12 04:03] LABS: THYROXINE (T4) 10.3 ug/dl (4.5-12.1)
[2016-05-12 04:10] LABS: THYROID STIMULATING HORMONE 1.57 uIU/ml (0.358-3.74)
[2016-05-12] MEDS: metFORMIN HCL 500 MG TABLET (FP) PO SCH (06:35)
[2016-05-12 07:58] LABS: BASOPHIL 0.6 % (0-2.0); EOSINOPHIL 1.5 % (0-4.5); MCH 32.2 pg (25.7-33.7); MEAN CELL VOLUME 94.8 fl (80-96); MEAN PLT VOLUME 7.7 fl (7.5-11.1); NEUTROPHILS 55.1 % (42.8-82.8); PLATELET COUNT 190 K/MM3 (134-434); RDW 14.7 % (11.9-15.9)
[2016-05-12 08:28] LABS: ALBUMIN 3.1 g/dl (3.4-5.0); ANION GAP 12 (8-16); CALCIUM 8.2 mg/dL (8.5-10.1); CO2 22 mmol/L (21-32); COCKROFT - GAULT 118.26; CREATININE 0.6 mg/dL (0.7-1.3); GLUCOSE,RANDOM 174 mg/dL (74-106); SGOT/AST 11 U/L (15-37); SGPT/ALT 35 U/L (12-78)
[2016-05-12 08:30] LABS: ALK PHOS 76 U/L (45-117); BILIRUBIN,TOTAL 0.3 mg/dL (0.2-1.0)
[2016-05-12 08:59] VITALS: BP 126/69; PULSE 76; TEMP 98.3
[2016-05-12] MEDS ORDERED: PT OWN MED DRAWER 7, Y5N ONE ×3 (09:04→12:21)
[2016-05-12] MEDS: LIPASE/PROTEASE/AMYLASE 36,000 UNIT CAPSULE PO SCH ×2 (09:14→12:29)
[2016-05-12] MEDS ORDERED: NICOTINE 21 MG/24 HOURS TOPICAL PATCH TD SCH (10:00)
[2016-05-12] MEDS ORDERED: PANTOPRAZOLE 40 MG TABLET (FP) PO SCH (10:00)
[2016-05-12] MEDS: TICAGRELOR 90 MG TABLET PO SCH (10:37)
--- NOTE | 2016-05-12 13:58 | PN ---
Progress Note, Physician - Current Medication List Current Medications: Active Medications Acetaminophen (Tylenol -) 650 mg PO Q4H PRN PRN Reason: FEVER OR PAIN Acetaminophen (Tylenol -) 650 mg PO Q6H PRN PRN Reason: FEVER OR PAIN Metformin HCl (Glucophage -) 1,000 mg PO BIDAC [facility] Last Admin: 05/12/16 06:35 Dose: 1,000 mg Nicotine (Nicoderm Patch -) 21 mg TD DAILY [facility] Last Admin: 05/12/16 10:37 Dose: 21 mg Pancrelipase (Creon Dr 36,000 Units Capsule) 1 cap PO TIDCM [facility] Last Admin: 05/12/16 12:29 Dose: 1 cap Pantoprazole Sodium (Protonix -) 40 mg PO DAILY [facility] Last Admin: 05/12/16 10:37 Dose: 40 mg Ticagrelor (Brilinta -) 90 mg PO BID [facility] Last Admin: 05/12/16 10:37 Dose: 90 mg - Objective Vital Signs: Vital Signs Temperature 98.3 F 05/12/16 08:59 Pulse Rate 76 05/12/16 08:59 Respiratory Rate 18 05/12/16 08:59 Blood Pressure 126/69 05/12/16 08:59 O2 Sat by Pulse Oximetry (%) 95 05/11/16 21:00 Labs: CBC, BMP 05/12/16 06:46 05/12/16 06:46 INR, PTT INR 1.16 (0.82-1.09) H 05/09/16 20:40 Assessment/Plan PT STATES NOT FEELING RIGHT NOT SPECIFIC FAM STATES VOM BLOOD HE DENIES IT VSS PLAN EKG TROP LEVELS STAT BEFORE D/C EGD COLONOSCOPY OUTPT PER GI PT WANT TO SMOKPT GAINED 1.5 LBS MAY D/C TODAY IF EKG TROP NL
--- NOTE | 2016-05-12 14:46 | DS ---
Physical Examination Vital Signs: Vital Signs Temperature 98.3 F 05/12/16 08:59 Pulse Rate 76 05/12/16 08:59 Respiratory Rate 18 05/12/16 08:59 Blood Pressure 126/69 05/12/16 08:59 O2 Sat by Pulse Oximetry (%) 95 05/11/16 21:00 Constitutional: Yes: No Distress, Calm Eyes: Yes: WNL HENT: Yes: WNL Neck: Yes: WNL Cardiovascular: Yes: WNL Respiratory: Yes: WNL Gastrointestinal: Yes: WNL, Soft Renal/: Yes: WNL Breast(s): Yes: WNL Musculoskeletal: Yes: WNL Extremities: Yes: WNL Edema: No Peripheral Pulses WNL: Yes Integumentary: Yes: WNL Neurological: Yes: Other (anxiuos) Labs: CBC, BMP 05/12/16 06:46 05/12/16 06:46 Discharge Summary Reason For Visit: PANCREATITIS COLITIS Current Active Problems Colitis (Acute) Pancreatitis (Acute) Condition: Stable - Instructions Diet, Activity, Other Instructions: dm low na Referrals: Julio Cesar Ramsey MD [Primary Care Provider] - Disposition: HOME - Home Medications Comprehensive Discharge Medication List: Ambulatory Orders Lisinopril 10 mg PO DAILY 02/23/16 Metoprolol Succinate [Toprol Xl -] 25 mg PO DAILY 02/23/16 Simvastatin [Zocor] 80 mg PO HS 02/23/16 Ticagrelor [Brilinta] 90 mg PO DAILY 02/23/16 Vilazodone Hydrochloride [Viibryd] 20 mg PO DAILY 02/23/16 Metformin HCl [Glucophage] 1,000 mg PO BID 04/25/16 Pantoprazole Sodium 40 mg PO DAILY 05/10/16
--- NOTE | 2016-05-13 16:26 | EKG ---
Test Reason : Blood Pressure : / mmHG Vent. Rate : 083 BPM Atrial Rate : 083 BPM P-R Int : 140 ms QRS Dur : 092 ms QT Int : 370 ms P-R-T Axes : 055 072 049 degrees QTc Int : 434 ms NORMAL SINUS RHYTHM NORMAL ECG WHEN COMPARED WITH ECG OF 10-MAY-2016 11:17, PREMATURE VENTRICULAR COMPLEXES ARE NO LONGER PRESENT Confirmed by CRISTELA AHUMADA MD ([id number]) on 05/13/2016 4:26:44 PM Referred By: RAE CARRION Confirmed By:CRISTELA AHUMADA MD
== END 2016-05-12 15:58 | disposition home or self-care (01) | DRG 392 ==
LOC: JER 18:32 → JERBED 05-10 00:13 → UNDOADMOB 05-10 00:28 → J5S 05-10 04:07 → OBSVTOIN 05-10 13:21
PROVIDERS: ADMIT Family Medicine; ATTEND Family Medicine
DX: K52.9 Noninfective gastroenteritis and colitis, unspecified (principal); K86.1 Other chronic pancreatitis; F17.210 Nicotine dependence, cigarettes, uncomplicated; E78.5 Hyperlipidemia, unspecified; I25.10 Atherosclerotic heart disease of native coronary artery without angina pectoris; Z98.61 Coronary angioplasty status; E11.43 Type 2 diabetes mellitus with diabetic autonomic (poly)neuropathy; K31.84 Gastroparesis
CPT/HCPCS: 36415; 71010-TC; 72050-TC; 74177-TC; 77074-TC; 80053; 81003; 81015; 82009; 82150; 82550; 83036; 83690; 83735; 84436; 84443; 84478; 84484; 85025; 85610; 85651; 86140; 86301; 87040; 93005; 93010; 99281-25; 99285-25; G0378; Q9967